=== PATIENT | male | born 1985 | race Two or more races ===

== ENCOUNTER → 2016-10-03 | Outpatient (CLI) | payer OTHER ==
--- NOTE | 2016-10-03 17:05 | REP ---
LUMBAR SPINE COMPLETE: 10/03/2016: Clinical history: Left hip pain. No prior study. Findings: Five views are provided. The AP view shows pedicles, spinous and transverse processes intact. Sacral ala and foramina symmetric and normal. The lower thoracic vertebral bodies and visualized ribs are intact. Lateral view shows no disc space narrowing, compression deformity, spondylolysis or spondylolisthesis. Normal lordosis maintained. Impression: 1. Normal lumbar spine radiographs. Signed by Roel Nuñez MD 10/03/2016 05:29 P
--- NOTE | 2016-10-03 17:08 | REP ---
LEFT HIP SERIES, COMPLETE: 10/03/2016. Clinical history: Left hip pain. No prior study. Findings: The two-view show the hip joint space preserved. There are no degenerative changes at the hip and no flattening of the femoral head to suggest AVN. No abnormal soft-tissue calcification. There are no focal bone lesions in the femoral head, neck, trochanters or proximal femoral shaft. Acetabulum, pubic rami, iliac bone and that portion of the left sacral ala unremarkable. Left SI joint and symphysis pubis intact. Impression: 1. No visible fracture or focal bone lesion about the left hip. Signed by Roel Nuñez MD 10/03/2016 05:29 P
== END ==
LOC: M LRY 16:11
PROVIDERS: ATTEND Physician Assistant
DX: M25.552 Pain in left hip (principal); M54.42 Lumbago with sciatica, left side